=== PATIENT | female | born 1955 | race Caucasian/White ===

== ENCOUNTER → 2018-04-22 | Day surgery (SDC) | payer OTHER ==
[~2018-04-22] MED LIST: IV RINGERS,LACTATED 1000ML 1,000 ML IV; LIDOCAINE 2% PF Vial for OR 5 ML VIAL.; PROPOFOL 20 ML IV; PROPOFOL 40 ML IV
[2018-04-22] MEDS: IV RINGERS,LACTATED 1000ML 1,000 ML IV (08:50)
== END | disposition home or self-care (01) ==
LOC: ENDOS 08:29
DX: K64.0 First degree hemorrhoids (principal); K63.89 Other specified diseases of intestine; K62.89 Other specified diseases of anus and rectum; K22.2 Esophageal obstruction; K21.0 Gastro-esophageal reflux disease with esophagitis; K44.9 Diaphragmatic hernia without obstruction or gangrene; K31.7 Polyp of stomach and duodenum; K29.50 Unspecified chronic gastritis without bleeding; K52.89 Other specified noninfective gastroenteritis and colitis; K50.80 Crohn's disease of both small and large intestine without complications; Z98.0 Intestinal bypass and anastomosis status; Z88.0 Allergy status to penicillin; Z98.890 Other specified postprocedural states; Z90.49 Acquired absence of other specified parts of digestive tract; Z93.2 Ileostomy status; D64.9 Anemia, unspecified; Z85.828 Personal history of other malignant neoplasm of skin; M79.7 Fibromyalgia; F32.9 Major depressive disorder, single episode, unspecified; Z83.3 Family history of diabetes mellitus; Z82.49 Family history of ischemic heart disease and other diseases of the circulatory system; Z79.899 Other long term (current) drug therapy
CPT/HCPCS: 43239; 43248; 45378; 45380; 88305; 88342; J2001; J2704

== ENCOUNTER → 2019-09-01 | Day surgery (SDC) | payer OTHER ==
[~2019-09-01] MED LIST changes: +ADAL40PE SQ; +DULO60CA6 PO; -IV RINGERS,LACTATED 1000ML 1,000 ML IV; +IV RINGERS,LACTATED 1000ML 1,000 ML IV ONE; +LIDOCAINE 2% PF 5 ML VIAL. ONE; -LIDOCAINE 2% PF Vial for OR 5 ML VIAL.; +OMEP40CA45 PO; +PRED20TA PO; -PROPOFOL 20 ML IV; +PROPOFOL 20 ML IV ONE; -PROPOFOL 40 ML IV; +RANI150T2 PO
[2019-09-01 11:45] VITALS: BP 132/61
--- NOTE | 2019-09-01 11:45 | PREOP HP ---
DATE OF SERVICE: DATE OF PROCEDURE: 09/01/2019 REQUESTING PHYSICIAN: Dr. Lucero Dennis. REASON FOR PROCEDURE: Esophageal stricture. HISTORY OF PRESENT ILLNESS: This is a 64-year-old female who presents for repeat dilation of a known esophageal stricture. ALLERGIES: PENICILLIN. PAST MEDICAL HISTORY: 1. Bowel obstruction. 2. Fibromyalgia. 3. Skin cancer. 4. Anemia. 5. Crohn's disease. 6. Esophageal stricture. MEDICATIONS: MAR reviewed. FAMILY MEDICAL HISTORY: Significant for diabetes. REVIEW OF SYSTEMS: A 13-point review of systems was done. It is positive as per HPI and otherwise negative. PHYSICAL EXAMINATION: GENERAL: She is a well-developed, well-nourished female, in no apparent distress. HEENT: Oropharynx is clear. CARDIOVASCULAR: S1, S2. LUNGS: Clear. ABDOMEN: Normoactive bowel sounds, soft, nontender, nondistended. EXTREMITIES: No edema. NEUROLOGIC: Awake, alert and oriented x 3. ASSESSMENT AND PLAN: 1. Esophageal reflux. 2. Dysphagia. 3. Esophageal stricture. We will plan for upper endoscopy with dilation. The risks and benefits of the procedure including bleeding, perforation, non-diagnosis and sedation were explained and she has agreed to proceed. MIROSLAVA BHARDWAJ MD DR: PRIYANKA/chris JOB#: [id number] / [id number]
== END ==
LOC: ENDOS 09:26
PROVIDERS: ATTEND Internal Medicine Gastroenterology
DX: K22.2 Esophageal obstruction (principal); K44.9 Diaphragmatic hernia without obstruction or gangrene; K21.9 Gastro-esophageal reflux disease without esophagitis; M79.7 Fibromyalgia; D64.9 Anemia, unspecified; K50.90 Crohn's disease, unspecified, without complications; K56.609 Unspecified intestinal obstruction, unspecified as to partial versus complete obstruction; Z85.828 Personal history of other malignant neoplasm of skin; Z88.0 Allergy status to penicillin
CPT/HCPCS: 43249; J2001; J2704; 43248

== ENCOUNTER → 2019-10-13 | Day surgery (SDC) | payer OTHER ==
[~2019-10-13] MED LIST changes: -IV RINGERS,LACTATED 1000ML 1,000 ML IV ONE; +IV RINGERS,LACTATED 1000ML 1,000 ML IV SCH
[2019-10-13 10:41] VITALS: BP 116/79
== END | disposition home or self-care (01) ==
LOC: ENDOS 09:13
PROVIDERS: ATTEND Internal Medicine Gastroenterology
DX: R13.10 Dysphagia, unspecified (principal); K22.2 Esophageal obstruction; K44.9 Diaphragmatic hernia without obstruction or gangrene; F32.9 Major depressive disorder, single episode, unspecified; M79.7 Fibromyalgia; D64.9 Anemia, unspecified; K50.90 Crohn's disease, unspecified, without complications; F15.90 Other stimulant use, unspecified, uncomplicated; Z88.0 Allergy status to penicillin; Z85.828 Personal history of other malignant neoplasm of skin
CPT/HCPCS: 43249; J2001; J2704; 43248